=== PATIENT | female | born 1960 | race Caucasian/White ===

== ENCOUNTER 2017-02-26 11:13 | Emergency (ER) | payer OTHER ==
--- NOTE | 2017-02-26 11:15 | PDOC ---
History of Present Illness - General Chief Complaint: Diarrhea Stated Complaint: DIARRHEA,DIZZY Time Seen by Provider: 02/26/17 11:15 History Source: Patient Exam Limitations: No Limitations - History of Present Illness Initial Comments: 02/26/17 11:16 this is a 56 yo F who presents to the ER from visiting her brother upstairs on the floors Pt states she feels dizzy Pt states at the end of January, she was admitted to an OSH for Diverticulitis She was discharged to home but returned to that hospital 2 days ago due to bloody diarrhea Repeat imaging demonstrated moderate diverticulosis which was compared to a CT from 02/03/2017 and demonstrated complete resolution of bowel inflammation in the region of the diverticulosis of the sigmoid colon. Plan is for follow up with [facility] (in 3 days). Of note, on that ER visit two days ago, she was diagnosed with a UTI and started on Cipro. Pt PMD switched her from cipro to Vancomycin (per pt to either treat a UTI or to something he cultured in a stool specimen). 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 Chanel GENERAL/CONSTITUTIONAL: No: fever, chills, weakness, loss of appetite. HEAD, EYES, EARS, NOSE AND THROAT: No: change in vision, ear pain, discharge, sore throat, throat swelling. CARDIOVASCULAR: No: chest pain, lightheadedness, palpitations, syncope RESPIRATORY: No: cough, shortness of breath, wheezing, hemoptysis, stridor. GASTROINTESTINAL: Yes: diarrhea, nausea No:abdominal pain GENITOURINARY: No: dysuria, hematuria, frequency, urgency, flank pain. MUSCULOSKELETAL: No: back pain, neck pain, joint pain, muscle swelling or pain SKIN: No: lesions, pallor, rash or easy bruising. NEUROLOGIC: No: headache, vertigo, paresthesias, weakness ENDOCRINE: No: unexplained weight gain or loss HEMATOLOGIC/LYMPHATIC: No: anemia, easy bleeding, swelling nodes. GENERAL: The patient is in no acute distress. HEAD: Normal with no signs of trauma. EYES: PERRLA, EOMI, sclera anicteric, conjunctiva clear. ENT: Ears normal, nares patent, oropharynx clear without exudates. Dry mucous membranes. NECK: Normal range of motion, supple without lymphadenopathy, JVD, or masses. LUNGS: Breath sounds equal, clear to auscultation bilaterally. No wheezes, and no crackles. HEART:Regular rate and rhythm, normal S1 and S2 without murmur, rub or gallop. ABDOMEN: Soft, nontender to palpation, normoactive bowel sounds. EXTREMITIES: Normal range of motion, no edema. No clubbing or cyanosis. No erythema, or tenderness. NEUROLOGICAL: Cranial nerves II through XII grossly intact. Normal speech. No focal neurological deficits. MUSCULOSKELETAL: Back non-tender to palpation, no CVA tenderness SKIN: Warm, Dry, normal turgor, no rashes or lesions noted. 02/26/17 11:26 02/26/17 11:44 Past History - Past Medical History Allergies/Adverse Reactions: Allergies Allergy/AdvReac Type Severity Reaction Status Date / Time levofloxacin [From Levaquin] Allergy Verified 02/26/17 11:14 Home Medications: Ambulatory Orders Atenolol [Tenormin -] 12.5 mg PO DAILY 02/26/17 Omeprazole 20 mg PO DAILY 02/26/17 Rosuvastatin Calcium [Crestor] 5 mg PO DAILY 02/26/17 Vancomycin HCl 125 mg PO BID 02/26/17 Heart Score/ECG Review #1 ECG reviewed & interpreted by me at: 11:50 General ECG Interpretation: Sinus Rhythm, Normal Rate, Normal Intervals, No acute ischemic changes ED Treatment Course - LABORATORY CBC & Chemistry Diagram: 02/26/17 11:50 02/26/17 11:50 Medical Decision Making - Medical Decision Making 02/26/17 11:49 Will do labs Will do EKG Will give IVF Pt encouraged to eat small meals Will NOT change antibiotic regimen started by her doctor 02/26/17 12:57 Laboratory Tests 02/26/17 02/26/17 02/26/17 11:50 11:50 11:50 WBC 7.1 Hgb 12.9 Hct 40.3 Plt Count 325 Sodium 133 L Potassium 4.1 Chloride 100 Carbon Dioxide 28 BUN 8 Creatinine 0.5 L Random Glucose 100 Creatine Kinase 44 Troponin I < 0.03 L Total Amylase 52 Lipase 47 02/26/17 13:05 Pt states she has intermittent palpitations Will repeat EKG Will give pt something to Eat Pt asks if she should stop her antibiotics I have explained that she should continue them until her stool cultures have returned Clinical Impression: Light headedness, diarrhea *DC/Admit/Observation/Transfer Diagnosis at time of Disposition: Dizziness Diarrhea Qualifiers: Diarrhea type: unspecified type Qualified Code(s): R19.7 - Diarrhea, unspecified - Discharge Dispostion Disposition: HOME Condition at time of disposition: Stable Admit: No - Patient Instructions Printed Discharge Instructions: Diarrhea Additional Instructions: Thank you for coming in to the ER Please continue the antibiotics as prescribed by your doctor you should follow up with your doctor in 2 days Monitor yourself for fevers Please eat small meals through the day
[2017-02-26] MEDS ORDERED: SODIUM CHLORIDE 1,000 ML IV STA (11:22)
[2017-02-26 11:25] VITALS: BP 152/90; PULSE 68; TEMP 97.8; BMI 28.3
[2017-02-26] MEDS ORDERED: ONDANSETRON 4 MG/2 ML VIAL IVPUSH ONE (11:27)
[2017-02-26] MEDS ORDERED: ONDANSETRON 4 MG/2 ML VIAL ONE (11:57)
[2017-02-26 12:00] LABS: BASOPHIL 1.1 % (0-2.0); EOSINOPHIL 2.7 % (0-4.5); MCH 26.5 pg (25.7-33.7); MCHC 32.1 g/dl (32.0-36.0); MEAN CELL VOLUME 82.5 fl (80-96); MEAN PLT VOLUME 8.1 fl (7.5-11.1); PLATELET COUNT 325 K/MM3 (134-434); RDW 12.7 % (11.6-15.6); WHITE BLOOD COUNT 7.1 K/mm3 (4.0-10.0)
[2017-02-26 12:17] LABS: CPK(DFH) 44 IU/L (26-140)
[2017-02-26 12:18] LABS: ALBUMIN 4.5 g/dl (3.5-5.0); ALK PHOS 81 U/L (32-92); AMYLASE 52 U/L (25-125); ANION GAP 5 (8-16); BILIRUBIN,TOTAL 0.3 mg/dl (0.2-1.0); CALCIUM 9.5 mg/dl (8.4-10.2); CO2 28 mmol/L (22-28); CREATININE 0.5 mg/dl (0.6-1.3); GLUCOSE,RANDOM 100 mg/dl (74-106); SGOT/AST 24 U/L (10-42); SGPT/ALT 26 U/L (10-40); TOT PROT 7.1 g/dl (6.4-8.3)
[2017-02-26 12:23] LABS: TROPONIN I (DFP) < 0.03 ng/ml (0.03-0.50)
--- NOTE | 2017-02-28 09:09 | EKG ---
Test Reason : Blood Pressure : / mmHG Vent. Rate : 072 BPM Atrial Rate : 072 BPM P-R Int : 198 ms QRS Dur : 098 ms QT Int : 410 ms P-R-T Axes : 055 057 046 degrees QTc Int : 448 ms SINUS RHYTHM WITH PREMATURE SUPRAVENTRICULAR COMPLEXES OTHERWISE NORMAL ECG WHEN COMPARED WITH ECG OF 26-FEB-2017 11:42, PREMATURE SUPRAVENTRICULAR COMPLEXES ARE NOW PRESENT Confirmed by APOLONIA MOYER, GARTH ([id number]) on 02/28/2017 9:09:42 AM Referred By: Confirmed By:GARTH BARKSDALE MD
--- NOTE | 2017-02-28 09:10 | EKG ---
Test Reason : Blood Pressure : / mmHG Vent. Rate : 067 BPM Atrial Rate : 067 BPM P-R Int : 204 ms QRS Dur : 096 ms QT Int : 404 ms P-R-T Axes : 052 054 042 degrees QTc Int : 426 ms NORMAL SINUS RHYTHM NORMAL ECG NO PREVIOUS ECGS AVAILABLE Confirmed by GARTH BARKSDALE MD ([id number]) on 02/28/2017 9:09:54 AM Referred By: STAN POOLE Confirmed By:GARTH BARKSDALE MD
== END 2017-02-26 14:30 | disposition home or self-care (01) ==
LOC: FER 11:13
PROC: 3E033GC Introduction of Other Therapeutic Substance into Peripheral Vein, Percutaneous Approach (ICD-10-PCS; principal; 2017-02-26)
PROC: 3E0337Z Introduction of Electrolytic and Water Balance Substance into Peripheral Vein, Percutaneous Approach (ICD-10-PCS; 2017-02-26)
DX: R42 Dizziness and giddiness (principal)
CPT/HCPCS: 36415; 80053; 82150; 82550; 83690; 84484; 85025; 93005; 99284-25